=== PATIENT | male | born 1960 | race Caucasian/White ===

== ENCOUNTER 2018-02-02 07:30 | Day surgery (SDC) | payer OTHER ==
[~2018-02-02] VITALS: Ht 182.9 cm; Wt 120.2 kg
[2018-02-02] MEDS ORDERED: MEPERIDINE HCL/PF 100 MG/ML AMP ONE (07:52)
[2018-02-02] MEDS ORDERED: SIMETHICONE 40 MG/0.6 ML ML ONE (07:53)
[2018-02-02] MEDS ORDERED: MIDAZOLAM HCL 5 MG/5 ML VIAL ONE (07:53)
[2018-02-02] MEDS: MIDAZOLAM HCL 5 MG/5 ML VIAL ONE ×4 (09:56→10:05)
[2018-02-02] MEDS: MEPERIDINE HCL/PF 100 MG/ML AMP ONE ×3 (09:56→10:18)
[2018-02-02 14:25] VITALS: BP_SYST 102
== END 2018-02-02 11:40 | disposition home or self-care (01) ==
LOC: SDS 07:30 → SMU 07:30 → SDS 11:40
PROVIDERS: ATTEND Internal Medicine Gastroenterology
DX: K62.5 Hemorrhage of anus and rectum (principal); K21.0 Gastro-esophageal reflux disease with esophagitis; K29.60 Other gastritis without bleeding; K57.30 Diverticulosis of large intestine without perforation or abscess without bleeding; K64.8 Other hemorrhoids; K44.9 Diaphragmatic hernia without obstruction or gangrene; I10 Essential (primary) hypertension; E78.5 Hyperlipidemia, unspecified; Z86.010 Personal history of colon polyps; Z79.899 Other long term (current) drug therapy; M10.9 Gout, unspecified; E66.9 Obesity, unspecified; Z68.33 Body mass index [BMI] 33.0-33.9, adult
CPT/HCPCS: 36415; 43239; 45378; 87081; 88305; 88312; 88313; J2175; J2250